=== PATIENT | female | born 1930 | race Two or more races ===

== ENCOUNTER 2017-09-26 06:44 | Emergency (ER) | payer MEDICARE, MEDICAID ==
[~2017-09-26] VITALS: Ht 152.4 cm; Wt 70.8 kg
[~2017-09-26 06:44] MED LIST: ASPI81CH43; LISI2.5T47; LORA10CA7; METO1TAB9; OME20GT; ROSU10TA16; ROSU20TA14; TRAM50TA2; ZOLP10TA6; [UNRECOGNIZED DRUG - CODE]
[2017-09-26 07:10] VITALS: BP 147/62
== END 2017-09-26 08:06 | disposition home or self-care (01) ==
LOC: MERGE 06:44 → ER 06:44
DX: J02.9 Acute pharyngitis, unspecified (principal); I10 Essential (primary) hypertension
CPT/HCPCS: 71046; 93005

== ENCOUNTER 2018-08-18 13:42 | Inpatient (IN) | payer MEDICARE, MEDICAID ==
[~2018-08-18] VITALS: Ht 152.4 cm; Wt 71.6 kg
[2018-08-18 14:56] LABS: Basophils # (auto) 0.1 uL; Basophils % (auto) 0.7 % (0.0-2.0); Eosinophils # (auto) 0.8 uL; Eosinophils % (auto) 8.3 % (0.0-7.0); Hematocrit 37.2 % (36.0-46.0); Hemoglobin 12.4 g/dL (12.2-16.2); Lymphocytes # (auto) 1.6 uL; Lymphocytes % (auto) 17.1 % (10.0-50.0); Mean Corpuscular Hemoglobin 29.5 pg (28.0-32.0); Mean Corpuscular Hgb Conc. 33.3 g/dL (32.0-36.0); Mean Corpuscular Volume 88.5 fL (80.0-100.0); Monocytes # (auto) 0.8 uL; Monocytes % (auto) 8.4 % (0.0-12.0); Neutrophils % (auto) 65.5 % (37.0-80.0); Platelet Count (auto) 347 10^3/uL (140-450); Red Blood Cells 4.21 10^6/uL (4.0-5.20); Red Cell Distribution Width 15.8 % (11.8-14.3); White Blood Cell 9.1 10^3/uL (4.4-10.8)
[2018-08-18 15:10] LABS: INR 0.89 (0.9-1.15); Partial Thromboplastin Time 25.8 sec (23.78-33.04); Prothrombin Time 9.6 sec (9.27-12.13)
[2018-08-18 15:27] LABS: Albumin 3.8 g/dL (3.4-5.0); Anion Gap 7 (5-15); Blood Urea Nitrogen 28 mg/dL (7-18); Carbon Dioxide 27 mmol/L (21-32); Chloride 103 mmol/L (98-107); Glucose 136 mg/dL (74-106); Potassium 4.1 mmol/L (3.5-5.1); Sodium 137 mmol/L (136-145)
[2018-08-18 15:33] LABS: Alanine Aminotransferase 17 U/L (13-56); Alkaline Phosphatase 92 U/L (45-117); Aspartate Aminotransferase 18 U/L (15-37); BUN/Creatinine Ratio 18.5; Bilirubin, Total 0.3 mg/dL (0.2-1.0); GFR African American 42 mL/min; GFR Non-African American 35 mL/min; Total Protein 8.1 g/dL (6.4-8.2)
[2018-08-18] MEDS ORDERED: NITROGLYCERIN 0.4 MG SL TAB SL PRN (17:00)
[2018-08-18] MEDS ORDERED: ASPirin-EC 81 mg tab PO ONE (17:00)
[2018-08-18] MEDS ORDERED: MORPHINE SULFATE 4 MG/ML SYR/VIAL IV PRN (17:00)
--- NOTE | 2018-08-18 20:40 | NUR ---
Telemetry admit from YADIRA FLOREZ admitted to Telemetry unit. Patient oriented to MARCI CHAPMAN, primary RN, unit, room, bed, and unit policies regarding patient care and visiting hours. Patient is North Korean speaking only. INCIDENT HANDLER at bedside for translation. Patient alert and orient X4. On continuous telemetry monitoring, tele box # 40 and telemetry reading on arrival to unit is NSR in the 70's. Patient weighed by bedscale and encouraged to call if they need something. All questions and concerns addressed, patient verbalized understanding.
[2018-08-18 21:00] VITALS: BP 143/85
--- NOTE | 2018-08-18 21:00 | NUR ---
Patient Denies FALLS, Patient reports she uses walker at home sometimes. Addendum: 08/19/18 at 0431 by MARCI CHAPMAN RN Amended: Links added.
[2018-08-18 22:00] VITALS: BP 143/85
[2018-08-19 04:58] VITALS: BP 119/60
--- NOTE | 2018-08-19 06:02 | NUR ---
UNABLE TO CONFIRM HOME MEDICATION PATIENT NOT ABLE TO RECALL WHAT MEDICATION SHE TAKES.
[2018-08-19 07:44] LABS: Urine Bacteria MOD /hpf (None Seen); Urine Blood Negative /uL (Negative); Urine Specific Gravity 1.016 (1.001-1.035); Urine WBC 87 /hpf (0 - 5)
[2018-08-19 08:06] LABS: Basophils # (auto) 0.1 uL; Basophils % (auto) 0.8 % (0.0-2.0); Eosinophils # (auto) 0.9 uL; Eosinophils % (auto) 11.9 % (0.0-7.0); Hematocrit 34.8 % (36.0-46.0); Hemoglobin 11.5 g/dL (12.2-16.2); Lymphocytes # (auto) 1.7 uL; Lymphocytes % (auto) 22.8 % (10.0-50.0); Mean Corpuscular Hgb Conc. 32.9 g/dL (32.0-36.0); Mean Corpuscular Volume 88.1 fL (80.0-100.0); Monocytes # (auto) 0.7 uL; Monocytes % (auto) 8.6 % (0.0-12.0); Neutrophils # (auto) 4.2 uL; Neutrophils % (auto) 55.9 % (37.0-80.0); Platelet Count (auto) 318 10^3/uL (140-450); Red Blood Cells 3.95 10^6/uL (4.0-5.20); Red Cell Distribution Width 15.5 % (11.8-14.3); White Blood Cell 7.6 10^3/uL (4.4-10.8)
--- NOTE | 2018-08-19 08:10 | NUR ---
OPENING NOTE PT RESTING IN BED, NO DISTRESS NOTED. BED ALARM ON, BED IN LOWEST LOCKED POSITION, SIDE RAILS UP X2. WILL CONTINUE TO MONITOR.
[2018-08-19 08:17] LABS: Calcium 8.8 mg/dL (8.5-10.1); Potassium 3.8 mmol/L (3.5-5.1)
[2018-08-19 08:49] VITALS: BP 126/60
--- NOTE | 2018-08-19 10:12 | NUR ---
PT SON AT BEDSIDE. SPOKE WITH SON AND SON REPORTS PT USUALLY WALKS TO THE BATHROOM INDEPENDENTLY AT HOME, BUT AT TIMES USES A WALKER. ASKED SON IF HE COULD TRANSLATE, PT IS TO USE CALL LIGHT SO SHE CAN HAVE ASSISTANCE TO THE BATHROOM FOR SAFETY. PT NODDED HEAD AND VERBALIZED UNDERSTANDING. BED ALARM ON.
[2018-08-19] MEDS: ASPirin-EC 81 mg tab PO SCH (10:17)
--- NOTE | 2018-08-19 11:04 | NUR ---
SPOKE WITH DR. MCCURDY AND DR. CHILDS. PT IS TO HAVE RADIOLOGY CONSULT WITH DR. MAURER FOR TUNNEL DIALYSIS CATHETER. CALLI REPORTS PT LEFT ARM FISTULA ISN'T WORKING. WILL CONTINUE TO MONITOR.
[2018-08-19 12:49] VITALS: BP 118/67
--- NOTE | 2018-08-19 13:10 | NUR ---
DR AGUILAR REQUESTS URINE SAMPLE. AQUIRED JAVA SCALA DEVELOPER, PATIENT NOTIFIED TO CALL FOR ASSISTANCE WHEN SHE HAS TO VOID AND PATIENT INFORMED A URINE SAMPLE IS NEEDED. CUP AT BEDSIDE. PT AGREED SHE WILL CALL WHEN SHE NEEDS TO VOID.
[2018-08-19] MEDS: LISINOPRIL 5 MG TAB PO SCH (13:56)
[2018-08-19] MEDS: METOPROLOL TARTRATE 25 MG TAB PO SCH ×2 (13:57→22:18)
--- NOTE | 2018-08-19 14:58 | NUR ---
DEAN OF INSTRUCTION COLLECTED URINE SAMPLE AND SENT TO LAB. CALLED LAB TO MAKE SURE LAB RECEIVED IT. LAB CONFIRMED URINE SAMPLE SENT. WILL CONTINUE TO MONITOR.
[2018-08-19 16:49] VITALS: BP 124/81
--- NOTE | 2018-08-19 18:00 | NUR ---
CLOSING NOTE PT UPDATED ON PLAN OF CARE. TIFFANY FLOOD TRANSLATED. ALL QUESTIONS AND CONCERNS ADDRESSED. PT NOTIFIED DR. AGUILAR IS GOING TO PRESCRIBE ANTIBIOTICS AND DR. ALBERTS ORDERED MRA ANGIO OF THE BRAIN, PHYSICAL THERAPY AND ROOM TO BE BRIGHT DURING THE DAY.
--- NOTE | 2018-08-19 18:56 | NUR ---
CLOSING NOTE 2 PT RESTING IN BED, NO DISTRESS NOTED, BED ALARM ON, PT NOTIFIED TO USE CALL LIGHT PRN AND FOR RESTROOM.
--- NOTE | 2018-08-19 19:10 | NUR ---
ASSUMED PATIENT CARE - NOC SHIFT PATIENT IS ALERT AND ORIENTED X4, ANSWERS IN COMPLETE SENTENCES AND MAKES APPROPRIATE EYE CONTACT. PATIENT IS IN BED, BED IS LOCKED IN LOWEST POSITION. BED RAILS UP X2, HEAD OF BED UP >30 DEGREES AND BED ALARM IS ON FOR SAFETY PRECAUTIONS. PATIENT IS ON 2L NC. NO S/SX OF DISTRESS OR SOB. DISCUSSED POC WITH PATIENT AND INSTRUCTED PATIENT TO CALL PRN; PATIENT VERBALIZED UNDERSTANDING. WILL CONTINUE TO MONITOR Q1H AND PRN. PATIENT IS UKRAINIAN SPEAKING ONLY.
[2018-08-19 22:00] VITALS: BP 114/60
[2018-08-19] MEDS: ATORVASTATIN 20 MG TAB PO SCH ×2 (22:18)
[2018-08-20 05:52] VITALS: BP 105/51
[2018-08-20 09:00] VITALS: BP 121/74
[2018-08-20] MEDS ORDERED: MET25T PO (10:23)
[2018-08-20] MEDS: METOPROLOL TARTRATE 25 MG TAB PO SCH ×2 (11:38→22:00)
[2018-08-20] MEDS: LISINOPRIL 5 MG TAB PO SCH (11:39)
[2018-08-20] MEDS: ASPirin-EC 81 mg tab PO SCH (11:40)
[2018-08-20] MEDS ORDERED: cefTRIAXone 1GM/50ML D5W 50 ML IV ONE (12:45)
[2018-08-20 13:00] VITALS: BP 116/67
[2018-08-20 17:00] VITALS: BP 117/58
--- NOTE | 2018-08-20 19:00 | NUR ---
ASSUMED PATIENT CARE- PATIENT IS ALERT AND ORIENTED X4, ANSWERS IN COMPLETE SENTENCES AND MAKES APPROPRIATE EYE CONTACT. PATIENT IS SERBIAN SPEAKING ONLY. PATIENT IS IN BED, BED IS LOCKED IN LOWEST POSITION, BED RAILS UP X2, HEAD OF BED IS UP >30 FOR SAFETY PRECAUTIONS. NO S/SX OF DISTRESS, SOB OR PAIN. WILL CONTINUE TO MONITOR Q1H AND PRN. DISCUSSED POC WITH PATIENT AND INSTRUCTED PATIENT TO CALL PRN. PATIENT VERBALIZED UNDERSTANDING.
[2018-08-20 22:00] VITALS: BP 130/60
[2018-08-20] MEDS: ASPIRIN-DIPYRIDAMOLE (25/200MG) CAPSULE PO SCH (22:00)
[2018-08-20] MEDS: ATORVASTATIN 20 MG TAB PO SCH (22:00)
[2018-08-21 05:00] VITALS: BP 118/54
--- NOTE | 2018-08-21 05:25 | NUR ---
PATIENT VOMITING AND COMPLAINING OF HEADACHE. HOSPITALIST LOVE ELEVATING GRADER OPERATOR MADE AWARE. NO ORDERS GIVEN AT THIS TIME. BP 118/54 HR76 TEMP 97.6 RR 18
--- NOTE | 2018-08-21 08:45 | NUR ---
Dr Goode at Bedside Dr Goode at patient bedside.
[2018-08-21 09:00] VITALS: BP 142/62
--- NOTE | 2018-08-21 09:02 | NUR ---
Open Shift Note Received report on patient, asleep but easily awoken when entered room. Patient states they have headache, has cloth over head/forehead. Discussed POC with patient. Bed in lowest locked position, side rails up x2, and call light within reach. Will continue to monitor. Addendum: 08/21/18 at 0904 by AINSLEY BLACKWOOD RN RN Open Shift report performed at 0720.
--- NOTE | 2018-08-21 09:55 | NUR ---
Dr Servin at Bedside Dr Servin at patient bedside.
[2018-08-21] MEDS ORDERED: ACETAMINOPHEN 325 MG TAB PO PRN (10:00)
[2018-08-21] MEDS: cefTRIAXone 1GM/50ML D5W 50 ML IV SCH (10:19)
[2018-08-21] MEDS: LISINOPRIL 5 MG TAB PO SCH (10:20)
[2018-08-21] MEDS: METOPROLOL TARTRATE 25 MG TAB PO SCH ×2 (10:20→22:00)
[2018-08-21] MEDS: ASPIRIN-DIPYRIDAMOLE (25/200MG) CAPSULE PO SCH ×2 (10:26→22:41)
[2018-08-21 13:00] VITALS: BP 117/59
[2018-08-21 17:00] VITALS: BP 114/55
--- NOTE | 2018-08-21 17:02 | NUR ---
assessment Patient is a 88 year old Solomon Islander speaking female who is alert and oriented. Ju ALLEN is translating for us. Prior to admission patient lived home with family and functioned with assistance. Per patient she will return home to her prior living arrangements post discharge and family will transport her home. Patient informed me her daughter in law Reyna is her caregiver. Patient informed me she has a wheelchair for home use. Patient informed me Dr Rodgers is her PCP. I informed patient she has a right to speak to a social welfare clerk regarding all care. I informed patient she has a right to participate in any and all discharge planning. Patient is aware of visiting hours on the hospital floor. I informed patient she has a right to privacy. Patient does not have a POA and advanced directive. I have offered patient information on POA and advanced directives. I informed the patient the advantages and benefits of having an Advanced Directive. Patient verbalized understanding and agreed to discharge plan. Per ss consult [facility] for safety evaluation, vitals, physical therapy, and medication management. Patient has been given a list of medicare providers. Per patient she has no preference on who provides service. MD order has been sent to [facility]. Per [facility] service will start within 48 hours of discharge. Waiting on discharge now. Addendum: 08/21/18 at 1706 by Allyson NEWMAN Amended: Links added.
--- NOTE | 2018-08-21 18:01 | NUR ---
Cardiology Consult Called Dr Díaz called for cardiology consult.
--- NOTE | 2018-08-21 18:15 | NUR ---
Re: Food Patient states they do not want to eat. Educated patient the importance of nutrition. Patient stated they would try some crackers.
--- NOTE | 2018-08-21 19:04 | NUR ---
End of Shift Endorsed care to NOC nurse. Patient shows no signs of distress at this time. Bed in lowest locked position, side rails up x2, and call light within reach.
--- NOTE | 2018-08-21 19:05 | NUR ---
ASSUMED PATIENT CARE- NOC SHIFT PATIENT IS ALERT AND ORIENTED X4, ANSWERS IN COMPLETE SENTENCES AND MAKES APPROPRIATE EYE CONTACT. PATIENT IS JAPANESE SPEAKING ONLY. NO S/SX OF DISTRESS, SOB OR PAIN. PATIENT IS IN BED, BED IS LOCKED AT LOWEST POSITION, BED RAILS UP X2, HEAD OF BED IS UP >60 DEGREES FOR SAFETY PRECAUTIONS. BEDSIDE TABLE WITHIN REACH, CALL LIGHT WITHIN REACH. DISCUSSED POC WITH PATIENT AND INSTRUCTED PATIENT TO CALL PRN; PATIENT VERBALIZED UNDERSTANDING. WILL CONTINUE TO MONITOR Q1H AND PRN.
[2018-08-21 22:00] VITALS: BP 110/55
[2018-08-21] MEDS: ATORVASTATIN 20 MG TAB PO SCH (22:42)
--- NOTE | 2018-08-22 00:25 | NUR ---
PATIENT FEELING PAIN AT JAW 5/10. MADE HOSPITALIST IBETH CERTIFIED ORTHOTIST AWARE. NO OTHER SYMPTOMS AT THIS TIME. VITAL SIGNS WITHIN NORMAL LIMITS. PATIENT IS ALERT AND ORIENTED X4.
[2018-08-22 05:00] VITALS: BP 110/50
--- NOTE | 2018-08-22 07:44 | NUR ---
OPENING NOTE Opening Shift Note Assumed care of patient, awake and alert. No S/S of distress/SOB or pain. Instructed on POC and to call for assist PRN. Bed at lowest position and call light within reach. Will continue to monitor for changes Q1hr and PRN.Family at bedside.
[2018-08-22 08:00] VITALS: BP 102/48
[2018-08-22 08:36] VITALS: BP 102/48
[2018-08-22] MEDS: cefTRIAXone 1GM/50ML D5W 50 ML IV SCH (09:47)
[2018-08-22] MEDS: LISINOPRIL 5 MG TAB PO SCH (09:49)
[2018-08-22] MEDS: ASPIRIN-DIPYRIDAMOLE (25/200MG) CAPSULE PO SCH ×2 (09:49→22:50)
[2018-08-22] MEDS: METOPROLOL TARTRATE 25 MG TAB PO SCH ×2 (09:49→22:50)
[2018-08-22] MEDS ORDERED: AGG25C PO (11:30)
[2018-08-22] MEDS ORDERED: LISI-275 PO (11:30)
[2018-08-22] MEDS ORDERED: ATOR20TA50 PO (11:30)
--- NOTE | 2018-08-22 12:00 | NUR ---
IV removal Patient complained of pain at IV site and requested for it to be removed. IV DC'd with clean sterile technique, catheter fully intact. Pressure dressing applied to site. Patient tolerated well.
--- NOTE | 2018-08-22 12:26 | NUR ---
Attempted to place IV 2 times. No IV obtained, patient does not want an IV at the moment. Educated her on the importance of having an IV for her treatment and throughout her stay here. Patient verbalized understanding.
[2018-08-22 13:00] VITALS: BP 129/56
--- NOTE | 2018-08-22 15:25 | NUR ---
NUTRITION ASSESSMENT NOTES Please refer to link notes of nutrition screen form filed under the intervention section of the plan of care for further details. Est. Needs: 1450 kcal to 1800 kcal (20-25 kcal/kgBW), 58 gms to 73 gms pro (0.8-1.0 gms/kgBW). Will continue to monitor pertinent labs and reassess nutrient needs prn Thank you. Addendum: 08/22/18 at [address] Amended: Links added.
[2018-08-22 17:00] VITALS: BP 112/65
--- NOTE | 2018-08-22 19:15 | NUR ---
end of shift note: Patient comfortably resting in bed, no s/s of distress noted /stated. Bed at lowest position and call light within reach. Family at bed side. Care endorsed to NOC RN.
--- NOTE | 2018-08-22 19:40 | NUR ---
Opening Shift Note Assumed care of patient, awake and alert x4. Bengali speaking, FEATHER MIXER at bedside for translation. No S/S of distress/SOB on room air. Denies pain at this time. Educated patient on need for IV access, patient agreed to IV attempt. Patient to be NPO at midnight, patient verbalized understanding. Bed locked in lowest position call light within reach. Bed alarm on. Instructed on POC and to call for assist PRN, will continue to monitor for changes Q1hr and PRN.
--- NOTE | 2018-08-22 19:47 | NUR ---
IV insertion IV access obtained, via clean sterile technique by inserting 22 gauge catheter at LEFT WRIST after 1 attempts. IV secured properly. No trauma to site. Patient tolerated well.
[2018-08-22 22:00] VITALS: BP 117/61
[2018-08-22] MEDS: ATORVASTATIN 20 MG TAB PO SCH (22:50)
--- NOTE | 2018-08-23 02:58 | NUR ---
ROUNDS PATIENT SLEEPING IN BED, RESPIRATIONS EVEN AND UNLABORED. NO S/S OF PAIN OR DISTRESS. CONTINUOUS TELEMETRY MONITORING REMAINS INTACT. CALL LIGHT WITHIN REACH. WILL CONTINUE TO MONITOR.
--- NOTE | 2018-08-23 04:30 | NUR ---
PATIENT HAS NAUSEA, VOMITED ONCE SMALL AMOUNT REQUESTING MEDICATION ,NO MEDICATION FOR NAUSEA AVAILABLE AT THIS TIME WILL PAGE HOSPITALIST
--- NOTE | 2018-08-23 05:01 | NUR ---
PAGED HOSPITALIST AWAITING CALL BACK
--- NOTE | 2018-08-23 05:20 | NUR ---
PATIENT THREW UP A TOTAL OF TWO TIME, WATERY EMESIS.
[2018-08-23] MEDS ORDERED: ONDANSETRON HCL 4 MG/2 ML VIAL IV PRN (05:30)
--- NOTE | 2018-08-23 05:41 | NUR ---
NAUSEA MEDICATION GIVEN SEE eMAR.
[2018-08-23 05:55] VITALS: BP 123/61
--- NOTE | 2018-08-23 07:20 | NUR ---
OPENING SHIFT NOTE ASSUMED CARE OF PATIENT. PATIENT AWAKE AND ALERT, RESTING IN BED. NO S/S OF DISTRESS/SOB NOTED OR STATED. BED AT LOWEST POSITION AND CALL LIGHT AT REACH. WILL CONTINUE TO MONITOR NEEDED.
--- NOTE | 2018-08-23 07:36 | NUR ---
TRANSFERRED PATIENT TO CAMP DISHWASHER WITH NOC RN. REPORT GIVEN TO RN.
--- NOTE | 2018-08-23 07:43 | NUR ---
SHOES SALESPERSON CALLED TO AIR QUALITY CHEMIST MY PATIENT. PATIENT REFUSED PROCEDURE.
[2018-08-23 08:00] VITALS: BP 101/46
[2018-08-23 09:00] VITALS: BP 101/46
--- NOTE | 2018-08-23 09:00 | NUR ---
Patient wants to have her procedure today. Notified Dr. Servin and called laboratory veterinarian. Patient is on the schedule for procedure later today. Patient continues to be NPO.
[2018-08-23] MEDS: LISINOPRIL 5 MG TAB PO SCH (10:00)
[2018-08-23] MEDS: METOPROLOL TARTRATE 25 MG TAB PO SCH (10:00)
[2018-08-23] MEDS: cefTRIAXone 1GM/50ML D5W 50 ML IV SCH (10:42)
[2018-08-23] MEDS: ASPIRIN-DIPYRIDAMOLE (25/200MG) CAPSULE PO SCH (10:49)
[2018-08-23] MEDS ORDERED: CIPR-173 PO (11:48)
--- NOTE | 2018-08-23 11:52 | NUR ---
Patient down in porcelain enamel laborer .
[2018-08-23] MEDS ORDERED: FLUMAZENIL 0.1 MG/ML INJ 10ML MDV IV ONE ×2 (11:57→12:00)
[2018-08-23] MEDS ORDERED: MIDAZOLAM HCL 1MG/1ML-2 ML VIAL ONE (11:58)
[2018-08-23] MEDS ORDERED: MIDAZOLAM HCL 1MG/1ML-2 ML VIAL IV ONE (12:00)
--- NOTE | 2018-08-23 12:53 | NUR ---
Patient back on the floor. no c/o pain noted or stated.
[2018-08-23] MEDS ORDERED: APIX2.5T OR (14:56)
--- NOTE | 2018-08-23 15:38 | NUR ---
Discharge instructions given as ordered. Encourage to follow up with PMD as instructed. All questions and concerns addressed. Patient verbalized understanding. IV removed with catheter intact, pressure dressing applied. Telemetry unit returned to ICU. No distress noted at time of discharge . All personal belongings with patient. Patient accompanied by staff and family member Patient transported to vehicle via wheelchair.
== END 2018-08-23 15:20 | disposition home health service (06) | DRG 65 ==
LOC: ER 13:46 → TELE 16:54 → TELE-WESTW 20:35
PROVIDERS: ADMIT Nurse Practitioner Acute Care; ATTEND Internal Medicine
DX: I63.512 Cerebral infarction due to unspecified occlusion or stenosis of left middle cerebral artery (principal); N39.0 Urinary tract infection, site not specified; G81.94 Hemiplegia, unspecified affecting left nondominant side; D68.59 Other primary thrombophilia; N18.3 Chronic kidney disease, stage 3 (moderate); E11.22 Type 2 diabetes mellitus with diabetic chronic kidney disease; I12.9 Hypertensive chronic kidney disease with stage 1 through stage 4 chronic kidney disease, or unspecified chronic kidney disease; E78.5 Hyperlipidemia, unspecified; Z86.73 Personal history of transient ischemic attack (TIA), and cerebral infarction without residual deficits; Z79.899 Other long term (current) drug therapy; Z79.82 Long term (current) use of aspirin; E03.9 Hypothyroidism, unspecified; I35.9 Nonrheumatic aortic valve disorder, unspecified; K21.9 Gastro-esophageal reflux disease without esophagitis; Z53.20 Procedure and treatment not carried out because of patient's decision for unspecified reasons; Z83.3 Family history of diabetes mellitus; Z90.49 Acquired absence of other specified parts of digestive tract
CPT/HCPCS: 36415; 70450; 70551; 71045; 80048; 80053; 80061; 80320; 81001; 83735; 83880; 84443; 84484; 85025; 85610; 85730; 87086; 93005; 93306; 93312; 93886; 94761; 96365; 97110; 97116; 97530; G0378; J0696; J2250; J2405

== ENCOUNTER 2018-10-09 08:27 | Emergency (ER) | payer MEDICARE, MEDICAID ==
[~2018-10-09] VITALS: Ht 152.4 cm; Wt 68.0 kg
[~2018-10-09 08:27] MED LIST changes: +APIX2.5T OR; -ASPI81CH43; +ATOR20TA50 PO; +CIPR-173 PO; +LISI-275 PO; +MET25T PO; -METO1TAB9; -ROSU10TA16; -ROSU20TA14; -ZOLP10TA6; -[UNRECOGNIZED DRUG - CODE]
[2018-10-09 09:34] LABS: Basophils # (auto) 0.1 uL; Basophils % (auto) 0.6 % (0.0-2.0); Eosinophils # (auto) 1.2 uL; Eosinophils % (auto) 14.2 % (0.0-7.0); Hematocrit 37.7 % (36.0-46.0); Hemoglobin 12.3 g/dL (12.2-16.2); Lymphocytes # (auto) 1.3 uL; Lymphocytes % (auto) 15.2 % (10.0-50.0); Mean Corpuscular Hemoglobin 29.1 pg (28.0-32.0); Mean Corpuscular Hgb Conc. 32.7 g/dL (32.0-36.0); Monocytes # (auto) 0.6 uL; Monocytes % (auto) 7.1 % (0.0-12.0); Neutrophils # (auto) 5.3 uL; Neutrophils % (auto) 62.9 % (37.0-80.0); Platelet Count (auto) 327 10^3/uL (140-450); Red Blood Cells 4.24 10^6/uL (4.0-5.20); Red Cell Distribution Width 16.7 % (11.8-14.3); White Blood Cell 8.4 10^3/uL (4.4-10.8)
[2018-10-09 09:46] LABS: INR 0.93 (0.9-1.15); Partial Thromboplastin Time 28.8 sec (23.78-33.04)
[2018-10-09 09:51] LABS: Albumin 3.7 g/dL (3.4-5.0); BUN/Creatinine Ratio 18.4; Calcium 9.1 mg/dL (8.5-10.1); Potassium 4.1 mmol/L (3.5-5.1)
[2018-10-09 09:53] LABS: Bilirubin, Total 0.6 mg/dL (0.2-1.0); Total Protein 8.3 g/dL (6.4-8.2)
[2018-10-09 11:08] VITALS: BP 125/75
[2018-10-09] MEDS: cefTRIAXone SOD 1,000 MG VL IM ONE (11:22)
[2018-10-09 11:23] LABS: Urine Bacteria FEW /hpf (None Seen); Urine Blood Negative /uL (Negative); Urine Specific Gravity 1.014 (1.001-1.035); Urine WBC 9 /hpf (0 - 5)
== END 2018-10-09 11:52 | disposition home or self-care (01) ==
LOC: ER 08:27
DX: J40 Bronchitis, not specified as acute or chronic (principal); K21.9 Gastro-esophageal reflux disease without esophagitis; E78.5 Hyperlipidemia, unspecified; I10 Essential (primary) hypertension; Z86.73 Personal history of transient ischemic attack (TIA), and cerebral infarction without residual deficits; Z90.49 Acquired absence of other specified parts of digestive tract
CPT/HCPCS: 36415; 71046; 80053; 81001; 83605; 85025; 85610; 85730; 87040; 93005; 94761; 96372; 99284; J0696